=== PATIENT | female | born 1965 | race Caucasian/White ===

== ENCOUNTER 2019-05-30 02:25 | Emergency (ER) | payer MEDICARE ==
[~2019-05-30] VITALS: Ht 165.1 cm; Wt 63.6 kg
[2019-05-30 02:30] VITALS: Ht 165.1 cm; Wt 63.6 kg
[2019-05-30] MEDS ORDERED: VOLTAREN25 MG PO (02:31)
[2019-05-30 04:16] VITALS: BP 104/71
== END 2019-05-30 04:17 | disposition home or self-care (01) ==
LOC: D.ER 02:25
DX: T78.1XXA Other adverse food reactions, not elsewhere classified, initial encounter (principal); R06.2 Wheezing; J44.9 Chronic obstructive pulmonary disease, unspecified